=== PATIENT | female | born 1940 | race Caucasian/White ===

== ENCOUNTER 2018-01-14 08:00 | Emergency (ER) | payer MEDICARE, OTHER ==
[2018-01-14] MEDS ORDERED: NS 0.9% 1000 ML* 1,000 ML IV ONE (08:04)
[2018-01-14] MEDS ORDERED: Iodixanol* (CONTRAST) 320 MG/ML 100 ML SDV IV ONE (08:15)
--- NOTE | 2018-01-14 08:21 | RAD ---
INDICATION: Weakness COMPARISON: None. TECHNIQUE: Contiguous axial sections of the brain were obtained from the skull base to the vertex without contrast. FINDINGS: The ventricles, cisterns and sulci are within normal limits. The allen-white matter differentiation is adequately maintained and there is no sulcal effacement. No significant focal abnormality or mass effect is present. There is coarse atherosclerotic calcification of bilateral vertebral arteries and the left worse than right petrous carotid arteries. There is no evidence for intracranial hemorrhage. No significant focal osseous abnormality is present. The visualized portion of the paranasal sinuses appear clear. The mastoid air cells are well aerated bilaterally. IMPRESSION: Arterial atherosclerosis in this otherwise nonacute CT of the brain. Negative acute findings reported to Dr. Michele over the telephone at 0817 hours on January 14, 2018.
[2018-01-14] MEDS ORDERED: Alteplase* 100 MG VIAL IV ONE ×2 (08:25)
[2018-01-14] MEDS ORDERED: Alteplase* 100 MG VIAL ONE (08:26)
[2018-01-14 08:48] LABS: ABS Basophils 0 10^3/ul (0-0.2); ABS Eosinophils 0.1 10^3/ul (0-0.6); ABS Lymphocytes 1.2 10^3/ul (1.0-4.8); ABS Monocytes 0.6 10^3/ul (0-0.8); ABS Neutrophils 6.1 10^3/ul (1.5-7.7); ABS Nucleated RBC 0 10^3/ul; Hematocrit 44 % (35-47); Hemoglobin 14.8 g/dl (12.0-16.0); Lymphocyte % 14.6 % (25-47); Mean Corpuscular HGB Conc 34 g/dl (31-36); Mean Corpuscular Hemoglobin 32 pg (27-31); Mean Corpuscular Volume 95 fL (80-97); Mean Platelet Volume 8.5 um3 (7.4-10.4); Nucleated Red Blood Cells % 0.1; Platelet Count 179 10^3/ul (150-450); Red Blood Count 4.65 10^6/ul (4.0-5.4); Red Cell Distribution Width 13 % (10.5-15); White Blood Count 7.9 10^3/ul (3.5-10.8)
[2018-01-14 08:56] LABS: INR 0.89 (0.77-1.02)
--- NOTE | 2018-01-14 09:04 | RAD ---
INDICATION: Code allen. Neurologic change. COMPARISON: None TECHNIQUE: An AP portable view obtained at 0850 hours is submitted. FINDINGS: Bones/Soft Tissues: There are no acute bony findings. There is sternotomy Cardiomediastinal: The cardiomediastinal silhouette is normal. The interstitium is mildly prominent. Lungs: There are no infiltrates. Pleura: There are no pleural effusions. Other: None IMPRESSION: MILDLY PROMINENT PULMONARY INTERSTITIUM. POSTOPERATIVE CHANGE.
[2018-01-14 09:11] LABS: EGFR Non-African American 64.9 (>60)
--- NOTE | 2018-01-14 09:15 | RAD ---
CPT II: CPT II Codes: 3100F INDICATION: Weakness COMPARISON: Same day CT of the brain that did not show any acute abnormalities. TECHNIQUE: A CT angiogram of the head and neck was performed with 80 cc of Visipaque 320. Contiguous axial sections were obtained from the thoracic inlet through the [place]. Images were reconstructed in the sagittal, coronal planes and in a 3-D volume rendered format. The distal cervical internal carotid artery diameter is used as the denominater for stenosis measurement. CTA NECK: The common and internal carotid arteries are patent without hemodynamically significant stenosis. Right: The right common carotid artery measures 6 mm in short access diameter. The right internal carotid artery measures 7 mm in diameter yielding 0% degree stenosis. There is a mild degree of partially calcified atherosclerosis of the carotid bulb. Left: Below the carotid bulb the left carotid artery measures 7 mm in short axis diameter. There is mixed attenuation atherosclerosis at the carotid bulb. The left internal carotid artery measures 5 mm in diameter. This yields approximately 28% degree stenosis. The vertebral arteries are patent without gross abnormality. CTA of the brain: The internal carotid, anterior and left middle cerebral arteries appear are patent without high grade stenosis or occlusion. On the right there is an abrupt occlusion of the middle cerebral artery (axial image [id number]). There is a relative absence of arterial filling in the anterior portion of the right temporal lobe relative to the contralateral side. The vertebral, basilar and posterior cerebral arteries appear patent without high grade stenosis or occlusion. There is apparent absence of the posterior communicating arteries bilaterally causing the [place] to be incomplete. IMPRESSION: 1. There is an abrupt filling defect at the M2 portion of the right middle cerebral artery causing a relative decrease of arterial filling at the anterior right temporal lobe relative to the left. 2. Mixed attenuation atherosclerosis causes approximately 28% degree stenosis at the left internal carotid arteries. Acute findings reported Dr. Michele and over the telephone at 0910 hours on January 14, 2018.
--- NOTE | 2018-01-14 09:43 | ED ---
Jack Silverman Stephanie, scribed for Spencer Michele MD on 01/14/18 at 0818 . Neurological HPI - HPI Summary HPI Summary: The pt is a 77 y/o F BIBA to the ED with c/o neurological deficit that began at 05:15 today. Per EMS, the pt was unable to see from her L visual field. The pt denies abd pain, CP and SOB. She woke normally at 5 AM. Her is currently receiving end-of-life care at home. She is on no blood thinners. She is having difficulty moving her left side. - History of Current Complaint Stated Complaint: CODE GARCÍA Time Seen by Provider: 01/14/18 08:01 Hx Obtained From: EMS Onset/Duration: Sudden Onset, Started hours ago, Still Present Timing: Constant Current Severity: Moderate Neurological Deficit Location: Facial Pain Intensity: 0 Pain Scale Used: 0-10 Numeric Character: Confusion Aggravating: Unknown Alleviating: Nothing Associated Signs and Symptoms: Negative: Chest Pain, Shortness of Breath - Allergy/Home Medications Allergies/Adverse Reactions: Allergies Allergy/AdvReac Type Severity Reaction Status Date / Time MS Metoprolol Allergy Fatigue Verified 04/26/16 13:25 [From Lopressor] MS Propoxyphene Allergy Rash Verified 04/26/16 13:24 [From Darvon Compound] Home Medications: Home Medications Aspirin EC TAB* [Ecotrin EC Low Dose 81 MG*] 162 mg PO DAILY 01/14/18 [History Confirmed 01/14/18] Diltiazem CD CAP* [Cardizem CD CAP*] 360 mg PO DAILY 01/14/18 [History Confirmed 01/14/18] Estradiol 0.025 MG PATCH (NF) 1 patch TRANSDERM .TWICE WEEKLY 01/14/18 [History Confirmed 01/14/18] Multivitamins/Minerals TAB* [Theragran/minerals TAB*] 1 tab PO DAILY 01/14/18 [ History Confirmed 01/14/18] Progesterone MICRONIZED(NF) [Progesterone] 100 mg PO DAILY 01/14/18 [History Confirmed 01/14/18] Rosuvastatin (NF) [Crestor (NF)] 20 mg PO QPM 01/14/18 [History Confirmed ] PMH/Surg Hx/FS Hx/Imm Hx Musculoskeletal History: Denies: Hx Osteoporosis Comment Only: Hx Rheumatoid Arthritis - SLIGHT Sensory History: Denies: Hx Legally Blind EENT History: Denies: Hx Deafness - Cancer History Hx Chemotherapy: No Hx Radiation Therapy: No - Surgical History Surgery Procedure, Year, and Place: - 1994 - Family History Known Family History: Negative: Renal Disease - Social History Occupation: Retired Lives: Assisted Living Alcohol Use: None Hx Substance Use: No Substance Use Type: Reports: None Review of Systems Negative: Fever Negative: Chest Pain Negative: Shortness Of Breath Negative: Abdominal Pain Negative: Slurred Speech All Other Systems Reviewed And Are Negative: Yes Physical Exam - Summary Physical Exam Summary: Appearance: Well appearing, no pain distress Skin: warm, dry, sternotomy scar Head/face: L sided facial droop Eyes: EOMI, TASHIA ENT: normal Neck: supple, non-tender Respiratory: CTA, breath sounds present Cardiovascular: heart irregularly irregular, pulses good and symmetrical Abdomen: non-tender, soft Bowel Sounds: present Musculoskeletal: normal, strength/ROM intact Neuro: Left-sided deficit to include drift in the lower extremity, some effort against gravity in the left upper extremity. Left facial droop. Left-sided sensory neglect. NIH stroke score of 6. Triage Information Reviewed: Yes Vital Signs On Initial Exam: Initial Vitals Temp Pulse Resp BP Pulse Ox 98.1 F 88 18 169/71 98 01/14/18 08:03 01/14/18 08:03 01/14/18 08:03 01/14/18 08:03 01/14/18 08:03 Vital Signs Reviewed: Yes Diagnostics - Vital Signs Vital Signs Temp Pulse Resp BP Pulse Ox 01/14/18 09:05 22 164/93 01/14/18 09:00 19 165/86 01/14/18 08:55 19 158/78 01/14/18 08:50 22 102/84 01/14/18 08:45 15 133/86 01/14/18 08:33 14 170/72 01/14/18 08:26 45 10 98 01/14/18 08:03 98.1 F 88 18 169/71 98 - Laboratory Lab Results: Lab Results 01/14/18 01/14/18 01/14/18 Range/Units 08:39 08:39 08:39 WBC 7.9 (3.5-10.8) 10^3/ul RBC 4.65 (4.0-5.4) 10^6/ul Hgb 14.8 (12.0-16.0) g/dl Hct 44 (35-47) % MCV 95 (80-97) fL MCH 32 H (27-31) pg MCHC 34 (31-36) g/dl RDW 13 (10.5-15) % Plt Count 179 (150-450) 10^3/ul MPV 8.5 (7.4-10.4) um3 Neut % (Auto) 77.0 (38-83) % Lymph % (Auto) 14.6 L (25-47) % [place] % (Auto) 6.9 (0-7) % Eos % (Auto) 1.0 (0-6) % Baso % (Auto) 0.5 (0-2) % Absolute Neuts (auto) 6.1 (1.5-7.7) 10^3/ul Absolute Lymphs (auto) 1.2 (1.0-4.8) 10^3/ul Absolute Monos (auto) 0.6 (0-0.8) 10^3/ul Absolute Eos (auto) 0.1 (0-0.6) 10^3/ul Absolute Basos (auto) 0 (0-0.2) 10^3/ul Absolute Nucleated RBC 0 10^3/ul Nucleated RBC % 0.1 INR (Anticoag Therapy) 0.89 (0.77-1.02) APTT 29.2 (26.0-36.3) seconds Sodium 139 (139-145) mmol/L Potassium 4.2 (3.5-5.0) mmol/L Chloride 108 (101-111) mmol/L Carbon Dioxide 25 (22-32) mmol/L Anion Gap 6 (2-11) mmol/L BUN 16 (6-24) mg/dL Creatinine 0.85 (0.51-0.95) mg/dL Est GFR ( Amer) 83.4 (>60) Est GFR (Non-Af Amer) 64.9 (>60) BUN/Creatinine Ratio 18.8 (8-20) Glucose 109 H (70-100) mg/dL Lactic Acid (0.5-2.0) mmol/L Calcium 9.1 (8.6-10.3) mg/dL Total Bilirubin 0.40 (0.2-1.0) mg/dL AST 22 (13-39) U/L ALT 21 (7-52) U/L Alkaline Phosphatase 82 (34-104) U/L Troponin I 0.01 (<0.04) ng/mL Total Protein 6.5 (6.4-8.9) g/dL Albumin 4.1 (3.2-5.2) g/dL Globulin 2.4 (2-4) g/dL Albumin/Globulin Ratio 1.7 (1-3) Triglycerides 130 mg/dL Cholesterol 140 mg/dL LDL Cholesterol 55 mg/dL HDL Cholesterol 58.6 mg/dL Blood Type Antibody Screen 01/14/18 01/14/18 Range/Units 08:39 08:39 WBC (3.5-10.8) 10^3/ul RBC (4.0-5.4) 10^6/ul Hgb (12.0-16.0) g/dl Hct (35-47) % MCV (80-97) fL MCH (27-31) pg MCHC (31-36) g/dl RDW (10.5-15) % Plt Count (150-450) 10^3/ul MPV (7.4-10.4) um3 Neut % (Auto) (38-83) % Lymph % (Auto) (25-47) % [place] % (Auto) (0-7) % Eos % (Auto) (0-6) % Baso % (Auto) (0-2) % Absolute Neuts (auto) (1.5-7.7) 10^3/ul Absolute Lymphs (auto) (1.0-4.8) 10^3/ul Absolute Monos (auto) (0-0.8) 10^3/ul Absolute Eos (auto) (0-0.6) 10^3/ul Absolute Basos (auto) (0-0.2) 10^3/ul Absolute Nucleated RBC 10^3/ul Nucleated RBC % INR (Anticoag Therapy) (0.77-1.02) APTT (26.0-36.3) seconds Sodium (139-145) mmol/L Potassium (3.5-5.0) mmol/L Chloride (101-111) mmol/L Carbon Dioxide (22-32) mmol/L Anion Gap (2-11) mmol/L BUN (6-24) mg/dL Creatinine (0.51-0.95) mg/dL Est GFR ( Amer) (>60) Est GFR (Non-Af Amer) (>60) BUN/Creatinine Ratio (8-20) Glucose (70-100) mg/dL Lactic Acid 1.1 (0.5-2.0) mmol/L Calcium (8.6-10.3) mg/dL Total Bilirubin (0.2-1.0) mg/dL AST (13-39) U/L ALT (7-52) U/L Alkaline Phosphatase (34-104) U/L Troponin I (<0.04) ng/mL Total Protein (6.4-8.9) g/dL Albumin (3.2-5.2) g/dL Globulin (2-4) g/dL Albumin/Globulin Ratio (1-3) Triglycerides mg/dL Cholesterol mg/dL LDL Cholesterol mg/dL HDL Cholesterol mg/dL Blood Type A Positive Antibody Screen Negative Result Diagrams: 01/14/18 08:39 01/14/18 08:39 Lab Statement: Any lab studies that have been ordered have been reviewed, and results considered in the medical decision making process. - Radiology CXR Xray Interpretation: No Acute Changes Radiology Interpretation Completed By: Radiologist - MILDLY PROMINENT PULMONARY INTERSTITIUM. POSTOPERATIVE CHANGE. ED physician has reviewed this report. - CT Head CT Interpretation: No Acute Changes CT Interpretation Completed By: Radiologist - Arterial atherosclerosis in this otherwise nonacute CT of the brain. Negative acute findings reported to Dr. Michele over the telephone at 0817 hours on January 14, 2018. CTA Head CT Interpretation: Positive (See Comments) CT Interpretation Completed By: Radiologist - 1. There is an abrupt filling defect at the M2 portion of the right middle cerebral artery causing a relative decrease of arterial filling at the anterior right temporal lobe relative to the left. 2. Mixed attenuation atherosclerosis causes approximately 28% degree stenosis at the left internal carotid arteries. Acute findings reported Dr. Michele and over the telephone at 0910 hours on January 14, 2018. - EKG 08:28 Cardiac Rate: NL - 99 BPM Ectopy: PACs EKG Interpretation: atrial bigeminy pattern NIH Scale - NIH Scale Level of Consciousness: Alert/Keenly Responsive Ask Patient the Month and His/Her Age: Both Correct Ask Pt to Open/Close Eyes and Fleet Driver/Release Non-Paretic Hand: Both Correctly Best Gaze (Only Horizontal Eye Movement): Normal Visual Field Testing: No Visual Loss Facial Paresis-Pt to Smile & Close Eyes or Grimace Symmetry: Minor Paralysis Motor Function - Right Arm: No Drift-Holds 10 Seconds Motor Function - Left Arm: Effort Against [place] Motor Function - Right Leg: No Drift-Holds 10 Seconds Motor Function - Left Leg: Drifts LT 10 seconds Limb Ataxia-Must be out of Proportion to Weakness Present: Absent Sensory (Use Pinprick to Test Arms/Legs/Trunk/Face): Normal Best Language (Describe Picture, Name Items): No Aphasia Dysarthria (Read Several Words): Normal Extinction and Inattention: Profound Spencer-Inattention Total Score: 6 Re-Evaluation - Re-Evaluation First Eval Re-Evaluation Time: 09:21 Change: Improved - ED physician discussed plan of transfer with the pt. patient has improved movement of her left upper extremity. There is less neglect. Course/Dx - Course Course Of Treatment: At 08:17, ED aware of negative head CT. On negative head CT TPA was ordered. Neurologist came and evaluated the patient in the ER. CT angiogram of the head and neck was performed prior to returning the patient from CT. This showed a right sided M2 occlusion. TPA was initiated and symptoms were improving. The neurologist was able to discuss the [facility] and cannot [facility] the patient. He then discussed it with the neuro interventional list at [facility]. They accepted the patient for transfer. Helicopter transport was arranged. Patient's blood pressures remained stable. She does have irregular heart rhythm. Rate is normal. She has not required management of her blood pressure. She has remained stable on the intravenous TPA. - Diagnoses Provider Diagnoses: Acute right MCA stroke, Sensory neglect - Physician Notifications Discussed Care Of Patient With: Juan Jones Time Discussed With Above Provider: 08:32 Instructed by Provider To: MD Will See In ED Admit/Transition Orders Completed By ED Provider: Yes - to ER -- accepting pt is Dr. Salmeron - Critical Care Time Critical Care Time: 75-104 min - Critical care time is exclusive of separately billable procedures. Discharge - Sign-Out/Discharge Documenting (check all that apply): Discharge/Admit/Transfer - Transfer - Discharge Plan Condition: Stable Disposition: TRANS HIGHER LVL OF CARE FAC Referrals: Christi Arceo MD [Primary Care Provider] - - Billing Disposition and Condition Condition: STABLE Disposition: EMTALA The documentation as recorded by the Jack menendez Stephanie accurately reflects the service I personally performed and the decisions made by me, Spencer Michele MD.
[2018-01-14 10:31] VITALS: BP 170/74
--- NOTE | 2018-01-14 12:48 | CONS ---
AMENDED REPORT NOW INCLUDES DATE OF CONSULT NEUROLOGY CONSULTATION NOTE: DATE OF CONSULT: 01/14/18 REASON FOR CONSULT: Neurology was consulted by activating the stroke alert to evaluate Ms. Mars for stroke. The history was obtained from the patient. CHIEF COMPLAINT: Left arm weakness, slurred speech, left facial droop. HISTORY OF PRESENT ILLNESS: Ms. Khanna is a pleasant 77-year-old right-handed female with history of CABG in 1994, who is on antiplatelet therapy with aspirin , who presented to the ED via ambulance with symptoms of sudden-onset left hemiparesis mostly involving the left upper extremity, left facial droop, and slurred speech. The patient woke up this morning at 05:30 a.m. without any neurological deficits. The symptoms started suddenly at 6 a.m. She denied any headaches. She denied any visual disturbances. She denied any swallowing difficulty. The patient is not on anticoagulation therapy. She has not had any surgery over the last 1 year. She has no history of intracranial hemorrhage. NIH STROKE SCALE: TIME LAST KNOWN WELL: 05:30 a.m. today. TIME OF ONSET: 6 a.m. STROKE CALL: 08:15. TIME OF ASSESSMENT: 08:20. IV TPA DECISION TIME: 08:30. NIH STROKE SCALE: Level of consciousness 0, level of question 0, level of conscious command 0, best gaze 1, visual 2, facial droop 2, motor left arm 2, motor right arm 0, motor left leg 0, motor right leg 0, limb ataxia 1, sensory 2 , best language 0, dysarthria 1, extinction 1, for a total NIH Stroke Scale 11- 12. The patient's symptoms slightly improved after starting tPA and making sure her blood pressure was on the higher side between 150 systolic-180 systolic. Her NIH Stroke Scale measured at 08:50 a.m. was 9. PAST MEDICAL HISTORY: CABG, rheumatoid arthritis. She does have history of hypertension and dyslipidemia. PAST SURGICAL HISTORY: Bypass surgery in 1994. MEDICATIONS: Please add the medications to the list. ALLERGIES: Please add the allergies to the list. FAMILY HISTORY: No family history of stroke or seizures. SOCIAL HISTORY: She is retired. She lives alone. She denied any tobacco or alcohol use. The patient is highly functional prior to this injury. REVIEW OF SYSTEMS: A 10-point review of systems was obtained, otherwise negative except for what was mentioned in the HPI. PHYSICAL EXAM: Please add vitals. General: Well-nourished, well-developed, alert, cooperative, in no apparent distress, appears her stated age. Head: Normocephalic without obvious abnormality. Eyes: Conjunctivae, cornea clear. Neck: Supple, symmetric. No carotid bruits. Lungs: Clear to auscultation bilaterally, nonlabored. Cardiovascular: Regular rhythm with multiple PVCs noted on the electrocardiogram. Normal S1, S2. Radial pulse is palpable. Extremities: Normal range of motion with no cyanosis. Skin: No skin lesions or laceration. Psychiatric: Affect is broad and normal mood. Easy to establish rapport. Neurological Examination: Mental Status: Awake and alert, oriented to person, place, and time in general circumstances. She does have mild spastic dysarthria , but had no trouble with language including expression, naming, repetition, and comprehension. Cranial nerves are normal confrontation bilaterally with pupils mid range and reactive to light. Normal consensual response. Extraocular muscles are intact. No ptosis, no conjugate or asymmetric nystagmus. She does have left profound homonymous hemianopsia. Sensation is intact on the forehead, cheeks, and jaw on the left, but reduced on the right. She did have extinction on the left side of the face. There was significant facial droop on the left when smiling, with flattening of the nasolabial fold and widening of the palpebral fissure. The patient is able to hear throughout the history process. She had a symmetric palatal elevation with normal strength against resistance and tongue is symmetric and midline with no atrophy or fasciculation. Motor Function: She had long tract signs on the left upper extremity with significant pronator drift. Otherwise, the right upper, right lower, and left lower extremities 5/5 throughout. Reflexes right-left: Brachioradialis 2/2, biceps 2/2, triceps 2/2, patella 1/1, ankle 0/0, plantar flexor on the right and mute on the left. Sensation is reduced on the left side of the face and left arm compared to the right. There is again tactile extinction on the left arm. Normal vibration at the toes bilaterally. Coordination: Normal [id number] on the right and motor dysmetria on the left. Gait and station were not assessed as the patient was receiving tPA. DIAGNOSTIC STUDIES/LAB DATA: Accu-Chek was normal at 106. Other labs including INR and PTT are within normal range. Creatinine is normal at 0.85. LDL is 55 and HDL is 58. The patient had a CT head without contrast completed today that showed no acute intracranial abnormality. She had an electrocardiogram that showed sinus rhythm with ventricular bigeminy and PVCs. She had a CTA head and neck. I personally reviewed both images. We are pending final read by Radiology. I contacted the [facility] and spoke with Dr. Spaulding. I reviewed the images. I found that the patient had distal M2 occlusion on the right MCA. I relayed these results. ASSESSMENT AND PLAN: 1. 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 I suspect she has a cortical infarct giving the signs of hemineglect, extinction, and hemianopsia. The patient was a candidate for IV tPA. IV tPA was infused within the 3-hour-4-1/2- hour window. Prior to infusion, both verbal and written consent were obtained from the patient. I specifically discussed the risks and benefit of IV tPA therapy, which include but are not limited to asymptomatic hemorrhage and possibly . After the tPA was infused, the patient was deemed potential candidate for mechanical thrombectomy. Again, I discussed this case with the [facility] vascular neurologists, who recommended an urgent transfer to [facility]. The patient will be air flighted to [place]. The accepting physician was Dr. Gil 2. Episode of mild hypotension. Her blood pressure dropped to 106. She did not take any of the antihypertensive medications this morning. 500 mL bolus of normal saline was given and the patient's neurological symptoms improved slightly, but NIH continues to be around the 9 range. Swallow evaluation will be done at bedside. We will keep the patient n.p.o. for now. She should not receive any antiplatelet or anticoagulation products within the next 24 hours. 3. I discussed these results with Dr. Spencer Michele, who agreed with assessment and plan. I spent a total of 90 minutes of critical care time assessing, evaluating the patient for tPA therapy, interpreting the radiological imaging, making the decision for tPA therapy, and discussing the case with the outside neurologist for transfer to further higher care since here at [facility] we do not have the capacity for mechanical thrombectomy. [id number]/[facility] #: [id number] JAMES
== END 2018-01-14 10:15 | disposition short-term general hospital (02) ==
LOC: ED 08:00
DX: I63.9 Cerebral infarction, unspecified (principal); G81.94 Hemiplegia, unspecified affecting left nondominant side; R47.81 Slurred speech; R29.810 Facial weakness; Z79.82 Long term (current) use of aspirin; Z95.1 Presence of aortocoronary bypass graft; I95.9 Hypotension, unspecified
CPT/HCPCS: 36415; 70450; 70496; 70498; 71045; 80053; 80061; 83605; 84484; 85025; 85610; 85730; 86850; 86900; 86901; 93005; 96374; 99285; J2997; Q9967

== ENCOUNTER 2018-02-01 08:40 | Emergency (ER) | payer MEDICARE, OTHER ==
[2018-02-01 08:53] VITALS: BP 156/103
--- NOTE | 2018-02-01 10:13 | RAD ---
HISTORY: Left shoulder dislocation, pain COMPARISONS: None VIEWS: 4, Frontal internal rotation, external rotation, outlet, and axillary views of the left shoulder FINDINGS: BONE DENSITY: Normal. BONES: There is no displaced fracture. JOINTS: There is no arthropathy. ALIGNMENT: There is no dislocation. SOFT TISSUES: Unremarkable. OTHER FINDINGS: The patient is status post median sternotomy IMPRESSION: NO ACUTE OSSEOUS INJURY. IF SYMPTOMS PERSIST, RECOMMEND REPEAT IMAGING.
--- NOTE | 2018-02-01 10:14 | RAD ---
HISTORY: Fall, left humerus and elbow pain COMPARISONS: None VIEWS: 4, Frontal, lateral, and oblique views of the left elbow FINDINGS: BONE DENSITY: Normal. BONES: There is no displaced fracture. JOINTS: There is no arthropathy. There is no posterior supracondylar fat pad to suggest a joint effusion. ALIGNMENT: There is no dislocation. SOFT TISSUES: Unremarkable. OTHER FINDINGS: None. IMPRESSION: NO ACUTE OSSEOUS INJURY. IF SYMPTOMS PERSIST, RECOMMEND REPEAT IMAGING.
--- NOTE | 2018-02-01 10:14 | RAD ---
HISTORY: Left shoulder pain, history of dislocation COMPARISONS: None VIEWS: 2, Frontal internal rotation and external rotation views of the left humerus FINDINGS: BONE DENSITY: Normal. BONES: There is no displaced fracture. JOINTS: There is no arthropathy. ALIGNMENT: There is no dislocation. SOFT TISSUES: Unremarkable. OTHER FINDINGS: None. IMPRESSION: NO ACUTE OSSEOUS INJURY. IF SYMPTOMS PERSIST, RECOMMEND REPEAT IMAGING.
--- NOTE | 2018-02-01 10:15 | RAD ---
HISTORY: Fall, left forearm and elbow pain COMPARISONS: None VIEWS: 2, Frontal and lateral views of the left forearm FINDINGS: BONE DENSITY: Normal. BONES: There is no displaced fracture. JOINTS: There is no arthropathy. ALIGNMENT: There is no dislocation. SOFT TISSUES: Unremarkable. OTHER FINDINGS: None. IMPRESSION: NO ACUTE OSSEOUS INJURY. IF SYMPTOMS PERSIST, RECOMMEND REPEAT IMAGING.
--- NOTE | 2018-02-01 10:46 | UC ---
Jack Silverman Stephanie, [facility] on 02/01/18 at 1042 . Upper Extremity HPI - HPI Summary HPI Summary: In room notes: The pt is a 77 y/o F presenting to with c/o L shoulder pain that began on January 14 s/p fall. The pt states she had a stroke and may have had syncope on the way down to the floor. She states when she fell she was unable to move. She states she dislocated her shoulder after the fall. The pt was seen at the hospital for fall and was flown to [place]. The pt reports she is on diltiazem. The pt states she has not been able to sleep recently due to severe pain throughout her entire L UE. She states she has tried heat and ice to remedy the pain however, symptoms have not improved. She reports the pt resolves after a few hours of walking. She describes her pain as an aching pain. She ahs been doing physicial therapy for the past 2 weeks. Her arm currently aches. notes: 77 y/o F with L arm and shoulder pain s/p fall. Hx positive for HTN that is being treated. Pt is on Coumadin and aspirin. Hx notable for stroke. 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 Nurse notes: On January 14 pt had a stroke. Pt fell and dislocated her L shoulder. Pt states for the past 2 weeks she has been waking up in the night at 0200 and having a lot of pain to lt arm/shoulder. pt has seen pcp and her tip stretcher for those. pt has been rx'd lidocaine patches that she says does not work. pt has not had this arm x-rayed. - History of Current Complaint Chief Complaint: UCUpperExtremity Stated Complaint: SHOULDER PAIN Time Seen by Provider: 02/01/18 10:10 Hx Obtained From: Patient ?: No Onset/Duration: Sudden Onset, Lasting Weeks, Still Present Severity Currently: Mild Pain Intensity: 0 Pain Scale Used: 0-10 Numeric Location Of Pain: Is Discrete @ - L UE Aggravating Factor(s): Nothing Alleviating Factor(s): Nothing Associated Signs And Symptoms: Positive: Bruising - Allergies/Home Medications Allergies/Adverse Reactions: Allergies Allergy/AdvReac Type Severity Reaction Status Date / Time metoprolol Allergy Fatigue Verified 02/01/18 08:53 propoxyphene [From Darvon] Allergy Rash Verified 02/01/18 08:53 Home Medications: Home Medications Warfarin TAB(*) [Coumadin TAB(*)] 5 mg PO DAILY 02/01/18 [History Confirmed ] PMH/Surg Hx/FS Hx/Imm Hx Cardiovascular History: Cardiac Disease, Hypertension, Atrial Fibrillation - Surgical History Surgical History: Yes Surgery Procedure, Year, and Place: 1994 - Family History Known Family History: Positive: Other - Negative: stroke and cancer Negative: Renal Disease - Social History Occupation: Retired Lives: Alone Alcohol Use: None Substance Use Type: None Smoking Status (MU): Never Smoked Tobacco Review of Systems Constitutional: Negative Skin: Bruising - L UE and thorax Eyes: Negative ENT: Negative Respiratory: Negative Cardiovascular: Negative Gastrointestinal: Negative Genitourinary: Negative Motor: Negative Neurovascular: Negative Musculoskeletal: Other: - L UE pain Neurological: Negative Psychological: Negative Is Patient Immunocompromised?: No All Other Systems Reviewed And Are Negative: Yes - Comments Additional Review of Systems Comments: POSITIVE: L UE pain, L UE ecchymosis NEGATIVE: abd pain Physical Exam - Summary Physical Exam Summary: Appearance: The patient is well-appearing, is in no pain distress, and is well- nourished. Eyes: Conjunctiva are clear. ENT: The hearing is grossly normal, the pharynx is normal, and the TMs are normal. There is no muffled or hoarse voice. Neck: The neck is supple and there is no lymphadenopathy. Respiratory: The chest is nontender. The lungs are clear, there are normal breath sounds, and there is no respiratory distress. Cardiovascular: Heart is regular rate and rhythm. There is no murmur. CONDUCTIVE RATE OF 90 BPM. Abdomen: The abdomen is soft and nontender. There is no organomegaly. Bowel sounds: present Musculoskeletal: Strength is intact. The patient moves all extremities. ECCHYMOSIS OVER L SHOULDER OVER DELTOID MUSCLE AND MEDIALLY OVER ELBOW AND FOREARM. FULL EXTENSION OF ELBOW AND FULL MOTION AT WRIST. GOOD STRENGTH WITH FLEXION OF FINGERS AND EXTENSION. LIMITATION OF MOVEMENT OF SHOULDER TO 90 DEGREES WITH ARM OUT. LIMITATION PUTTING ARM BEHIND BUT NO LIMITATION WITH MOVING HAND ACROSS CHEST. SHOULDER NOT DISLOCATED AT THIS TIME. GOOD CAPILLARY REFILL. RADIAL AND ULNAR PULSES ARE STRONG. THORAX: SIGNIFICANT ECCHYMOSIS ON L SIDE ALONG THE POSTERIOR AUXILIARY LINE Neurological: The patient is alert. Psychological: The patient displays age appropriate behavior Skin: Negative for rashes. Triage Information Reviewed: Yes Vital Signs: Initial Vital Signs Temp 97.5 F 02/01/18 08:50 Pulse 91 02/01/18 08:50 Resp 18 02/01/18 08:50 BP 156/103 02/01/18 08:50 Pulse Ox 100 02/01/18 08:50 Vital Signs Reviewed: Yes Diagnostics - Radiology Elbow XRay Xray Interpretation: No Acute Changes Radiology Interpretation Completed By: Radiologist - NO ACUTE OSSEOUS INJURY. IF SYMPTOMS PERSIST, RECOMMEND REPEAT IMAGING. physician has reviewed this report. Forearm XRay Xray Interpretation: No Acute Changes Radiology Interpretation Completed By: Radiologist - NO ACUTE OSSEOUS INJURY. IF SYMPTOMS PERSIST, RECOMMEND REPEAT IMAGING. physician has reviewed this report. Humerus XRay Xray Interpretation: No Acute Changes Radiology Interpretation Completed By: Radiologist - NO ACUTE OSSEOUS INJURY. IF SYMPTOMS PERSIST, RECOMMEND REPEAT IMAGING. physician has reviewed this report. Shoulder XRay Xray Interpretation: No Acute Changes Radiology Interpretation Completed By: Radiologist - NO ACUTE OSSEOUS INJURY. IF SYMPTOMS PERSIST, RECOMMEND REPEAT IMAGING. physician has reviewed this report. Upper Extremity Course/Dx - Course Course Of Treatment: Pt is worried about pain to L of her extremity when sleeping. XRays of shoulder and arm showed no bone injury. physician believes this is a residual of her shoulder dislocation at time of stroke. Stroke symptoms appear completely resolved. Recommended PT and that she sleeps sitting up. Elevated BP but has current hypertension diagnosis and treatment. This should be rechecked a few times in the next month. Medications have been included in the original chart and reviewed. physician has given her instructions on shoulder dislocation exercises. - Differential Dx/Diagnosis Differential Diagnosis/HQI/PQRI: Other - fracture vs soft tissue injury Provider Diagnoses: L UE residual soft tissue injury from shoulder dislocation Discharge - Sign-Out/Discharge Documenting (check all that apply): Discharge/Admit/Transfer - Discharge - Discharge Plan Condition: Stable Disposition: HOME Patient Education Materials: Shoulder Dislocation Exercises (GEN) Referrals: Christi Arceo MD [Primary Care Provider] - 3 Days Additional Instructions: PLEASE SEEK CARE AT THE EMERGENCY DEPARTMENT IF SYMPTOMS WORSEN OR IF NEW SYMPTOMS DEVELOP. FOLLOW UP WITH YOUR PRIMARY CARE PHYSICIAN.Elevated BP but has current hypertension diagnosis and treatment. This should be rechecked a few times in the next month. physician has given her instructions on shoulder dislocation exercises. WE DISCUSSED: 1. Your x rays did not show a fracture. 2. Your discomfort with sleeping will likely resolve over the next 2-3 months. 3. I have given you some exercises that may help. 4. Find the position of comfort to help you sleep. 5. You may use yours shoulder, but "if it hurts, don't do it." 6. Follow up at any time for increased pain or disability. - Billing Disposition and Condition Condition: STABLE Disposition: HOME The documentation as recorded by the Jack menendez Stephanie accurately reflects the service I personally performed and the decisions made by me, Dominic Becker MD.
== END 2018-02-01 10:46 | disposition home or self-care (01) ==
LOC: UCEAST 08:40
DX: S49.92XS Unspecified injury of left shoulder and upper arm, sequela (principal); W18.30XS Fall on same level, unspecified, sequela; I10 Essential (primary) hypertension; I48.91 Unspecified atrial fibrillation; Z79.01 Long term (current) use of anticoagulants; Z79.82 Long term (current) use of aspirin; I67.9 Cerebrovascular disease, unspecified; Z88.6 Allergy status to analgesic agent; Z88.8 Allergy status to other drugs, medicaments and biological substances; Z95.1 Presence of aortocoronary bypass graft
CPT/HCPCS: 99211; G0463

== ENCOUNTER 2018-08-14 08:02 | Day surgery (SDC) | payer MEDICARE, OTHER ==
[~2018-08-14 08:02] MED LIST: Buffered Lidocaine 0.9% SYRIN* 5 ML/SYR SYRINGE INTRADERM ONE; Sodium Citrate/Citric Acid* 15 ML UDC PO ONE
[2018-08-14] MEDS ORDERED: Sodium Citrate/Citric Acid* 15 ML UDC ONE (08:42)
[2018-08-14] MEDS ORDERED: Buffered Lidocaine 0.9% SYRIN* 5 ML/SYR SYRINGE ONE (08:42)
[2018-08-14] MEDS ORDERED: ceFAZolin 2 GM PREMIX in ORs 2 GM/50 ML BAG IVPB ONE (08:42)
[2018-08-14] MEDS ORDERED: fentaNYL* 50 MCG/ML 2 ML VIAL (100 MCG VIAL) ONE (10:12)
[2018-08-14] MEDS ORDERED: Propofol* 10 MG/ML 20 ML BTL ONE (10:16)
[2018-08-14] MEDS ORDERED: Bupivacaine 0.5% PF 10 ML VIAL INJ ONE (10:20)
[2018-08-14] MEDS ORDERED: Naloxone* 0.4 MG/ML 1 ML VIAL IV PRN (11:03)
--- NOTE | 2018-08-14 11:13 | OP ---
Operative Report - Blank - Operative Report Date of Operation: 08/14/18 Note: PATIENT: Clemencia Mars DATE OF : 1940 DATE OF SURGERY: 08/14/2018 SURGEON: Ruiz Arana MD DENTAL LABORATORY MANAGER: ABBY Otero, whos assistance was necessary for positioning, retraction, help with instrumentation, and closure. ANESTHESIOLOGIST: Dr. Saez PREOPERATIVE DIAGNOSIS: Painful right 2nd Hammertoe POSTOPERATIVE DIAGNOSIS: Painful right 2nd Hammertoe OPERATION: Right 2nd Hammertoe correction with PIP resection arthroplasty ANESTHESIA: MAC IMPLANTS: 0.045 k-wire TOURNIQUET TIME: Less than 1 hour with an ankle Esmarch tourniquet SPECIMENS: none ESTIMATED BLOOD LOSS: minimal COMPLICATIONS: none STATUS: Stable from the operating room to the recovery room and then home INDICATIONS FOR PROCEDURE: Clemencia has had a painful right 2nd toe deformity. Both operative and non- operative treatment alternatives were reviewed. Further, the nature and risks of surgery were reviewed in careful detail. Our discussions regarding the risks of surgery included, but were not limited to, infection, wound problems, nerve injury, neuroma, RSD, persistent symptoms, recurrence, blood clot, need for further surgery, failure of the surgery, and even the remote chance of catastrophic complication, including loss of toe. DESCRIPTION OF PROCEDURE: The patient was seen in the preoperative holding unit and informed written consent was obtained. The appropriate extremity was marked. The patient was then brought to the operating room and carefully positioned on the operating room table. Anesthesia was induced. All bony prominences were padded with great care. A chlorhexidine based pre-scrub was performed followed by a chloraprep prep and drape in standard sterile fashion. A surgical safety pause was then conducted in which we confirmed the appropriate patient, extremity, planned procedure, availability of equipment, indication and administration of prophylactic antibiotics, and DVT prophylaxis in the form of a compression boot on the non-surgical extremity. I began with an Esmarch exsanguination of limb and placement of an ankle Esmarch tourniquet. An incision was made over the 2nd toe PIP joint and taken down to the level of bone and joint. The collateral ligaments were released on both sides. I then used a small oscillating saw to osteotomize the distal aspect of the proximal phalanx. This was then excised. I then placed a 0.045 K wire through the toe in an antegrade/retrograde fashion. The resection and pin placement was then confirmed with fluoroscopy. The toe sat nice and straight clinically. There is no hip or extension deformity appreciated at the MTP joint, so I decided not to perform a joint release and extensor tendon lengthening. The tourniquet was then released and the toe was nice and pink with good capillary refill. The wound was copiously irrigated and meticulously closed in layers utilizing 3- 0 Monocryl and 4-0 Nylon. A sterile dressing was then applied. The patient was then awakened from anesthesia and transferred to the recovery room in stable condition. There were no complications. All needle and sponge counts were correct at the end of the case. ATTESTATION: I attest I was present and scrubbed and performed the critical portions of the procedure myself. POSTOPERATIVE PLAN: Heel weightbearing and we will plan on 6 weeks with the k- wire.
[2018-08-14 11:31] VITALS: BP 125/96
== END 2018-08-14 11:39 | disposition home or self-care (01) ==
LOC: OR 08:02
PROVIDERS: ATTEND Orthopaedic Surgery
DX: M20.41 Other hammer toe(s) (acquired), right foot (principal); I25.10 Atherosclerotic heart disease of native coronary artery without angina pectoris; I48.91 Unspecified atrial fibrillation; I34.0 Nonrheumatic mitral (valve) insufficiency; Z86.73 Personal history of transient ischemic attack (TIA), and cerebral infarction without residual deficits; Z79.01 Long term (current) use of anticoagulants
CPT/HCPCS: 76000; 88304; 88311; A9270-GY; C1776; J0690; J2704; J3010